=== PATIENT | female | born 1965 | race Caucasian/White ===

== ENCOUNTER → 2016-05-04 | Day surgery (SDC) | payer OTHER ==
[~2016-05-04] VITALS: Ht 162.6 cm; Wt 127.0 kg
[~2016-05-04] MED LIST: BIOT1CAP2 PO; CYCL10TA PO; LIDOCAINE 2% INJ 100 MG/5 ML SDV (FOR ANES.) As Ordered ONE; LISI-542 PO; LR 1,000 ML IV SCH; OMEP20CA3 PO; PROPOFOL 200 MG/20 ML VIAL As Ordered ONE; TRAM50TA2 PO; VITA-121 PO
--- NOTE | 2016-05-04 15:51 | ROOR ---
Patient Name: Skylar Carpio Procedure Date: 05/04/2016 1:55 PM Date of : 1965 Age: 51 Room: Main OR Gender: Female Note Status: Finalized Procedure: Colonoscopy Indications: This is the patient's first colonoscopy Providers: Víctor Deleon MD Referring MD: ROXY WATERMAN DO Requesting Provider: Medicines: Monitored Anesthesia Care Complications: No immediate complications. Procedure: Pre-Anesthesia Assessment: - Prior to the procedure, a History and Physical was performed, and patient medications and allergies were reviewed. The patient is competent. The risks and benefits of the procedure and the sedation options and risks were discussed with the patient. All questions were answered and informed consent was obtained. Patient identification and proposed procedure were verified by the physician, the nurse and the facing baster in the procedure room. Mental Status Examination: alert and oriented. CV Examination: regular rate and rhythm. Prophylactic Antibiotics: The patient does not require prophylactic antibiotics. Prior Anticoagulants: The patient has taken no previous anticoagulant or antiplatelet agents. ASA Grade Assessment: III - A patient with severe systemic disease. After reviewing the risks and benefits, the patient was deemed in satisfactory condition to undergo the procedure. The anesthesia plan was to use monitored anesthesia care (MAC). Immediately prior to administration of medications, the patient was re-assessed for adequacy to receive sedatives. The heart rate, respiratory rate, oxygen saturations, blood pressure, adequacy of pulmonary ventilation, and response to care were monitored throughout the procedure. The physical status of the patient was re-assessed after the procedure. The Colonoscope was introduced through the anus and advanced to the cecum, identified by appendiceal orifice and ileocecal valve. The colonoscopy was performed without difficulty. The patient tolerated the procedure well. The quality of the bowel preparation was excellent. Findings: The perianal and digital rectal examinations were normal. Multiple medium-mouthed diverticula were found in the sigmoid colon. A few small-mouthed diverticula were found in the descending colon, splenic flexure, transverse colon, hepatic flexure and ascending colon. A 5 mm polyp was found at 60 cm proximal to the anus. The polyp was sessile. The polyp was removed with a hot snare. Resection and retrieval were complete. Impression: - Diverticulosis in the sigmoid colon. - Diverticulosis in the descending colon, at the splenic flexure, in the transverse colon, at the hepatic flexure and in the ascending colon. - One 5 mm polyp at 60 cm proximal to the anus, removed with a hot snare. Resected and retrieved. Recommendation: - Await pathology results. - Discharge patient to home. - Resume previous diet. - Continue present medications. - Telephone endoscopist for pathology results in 10 days. Attending Participation: I personally performed the entire procedure. Víctor Deleon MD 05/04/2016 3:51:24 PM Number of Addenda: 0 Note Initiated On: 05/04/2016 1:55 PM Estimated Blood Loss: Estimated blood loss: none.
[2016-05-04 16:40] VITALS: BP 138/77
== END | disposition home or self-care (01) ==
LOC: M SDC 11:15
PROVIDERS: ATTEND Surgery
DX: Z12.11 Encounter for screening for malignant neoplasm of colon (principal); D12.6 Benign neoplasm of colon, unspecified; K57.30 Diverticulosis of large intestine without perforation or abscess without bleeding; I10 Essential (primary) hypertension; E66.9 Obesity, unspecified; Z98.84 Bariatric surgery status; K21.9 Gastro-esophageal reflux disease without esophagitis; G47.30 Sleep apnea, unspecified; Z88.8 Allergy status to other drugs, medicaments and biological substances; M54.5 Low back pain; Z87.891 Personal history of nicotine dependence; Z79.899 Other long term (current) drug therapy

== ENCOUNTER → 2016-08-09 | Outpatient (REF) | payer OTHER ==
[~2016-08-09] MED LIST changes: -LIDOCAINE 2% INJ 100 MG/5 ML SDV (FOR ANES.) As Ordered ONE; -LR 1,000 ML IV SCH; -PROPOFOL 200 MG/20 ML VIAL As Ordered ONE
[2016-08-09 14:00] LABS: IMMUNOGLOBULIN G 1100 MG/DL (681-1648); IMMUNOGLOBULIN M 76.7 MG/DL (40-230)
[2016-08-09 14:18] LABS: TOTAL PROTEIN 6.8 GM/DL (6.4-8.2)
[2016-08-10 11:52] LABS: ALBUMIN 3.62 GM/DL (3.29-5.55); ALBUMIN % 53.3 % (55.8-66.1); GAMMA GLOBULIN % 16.4 % (11.1-18.8)
[2016-08-11 00:06] LABS: BETA 2 MICROGLOBULIN 2.7 mg/L (0.6-2.4); FREE KAPPA LIGHT CHAINS SERUM 22.1 mg/L (3.3-19.4); FREE LAMBDA LIGHT CHAINS SERUM 25.7 mg/L (5.7-26.3); KAPPA/LAMBDA RATIO SERUM 0.86 (0.26-1.65)
== END ==
LOC: M LAB REF 12:21
PROVIDERS: ATTEND Internal Medicine Medical Oncology
DX: D47.2 Monoclonal gammopathy (principal)

== ENCOUNTER → 2016-08-14 | Outpatient (REF) | payer OTHER | LOC: M LAB REF 14:49 | PROVIDERS: ATTEND Nurse Practitioner Family | DX: D47.2 Monoclonal gammopathy (principal) ==

== ENCOUNTER → 2016-08-14 | Outpatient (CLI) | payer OTHER ==
--- NOTE | 2016-08-15 02:53 | REP ---
Clinical: Monoclonal gammopathy of undetermined significance (MGUS) Technique: Adult bone survey. Findings: No lytic, blastic, or sclerotic osseous lesions are identified to suggest multiple myeloma or metastatic disease. Moderate to advanced multilevel degenerative changes noted predominantly involving the cervical spine at the C4-5 through C7-T1 levels including grade 1 anterolisthesis and reversal of lordosis at the C4-5 level. Moderate to advanced multilevel changes are also noted involving the lower thoracic and lumbosacral spine including osteophytosis, endplate sclerosis, elements of disc space narrowing and hypertrophic facet changes which are most pronounced at the L4-5 and L5-S1 levels as well as the T10-11, T11-12, and T12-L1 levels. AP and lateral views of the skull demonstrates hyperostosis frontalis. The bilateral visualized upper and lower extremities appear normal for age. Impression: 1. Degenerative changes primarily involving the cervical, lumbar and to a somewhat lesser extent thoracic spine. 2. No findings to suggest multiple myeloma or osseous metastatic disease. Signed by Rafael Gleason MD 08/15/2016 02:45 A
== END ==
LOC: M RAD 13:29 → M LAB 13:29
PROVIDERS: ATTEND Nurse Practitioner Family
DX: D47.2 Monoclonal gammopathy (principal)

== ENCOUNTER 2016-10-23 18:18 | Emergency (ER) | payer OTHER ==
[~2016-10-23] VITALS: Ht 162.6 cm; Wt 127.2 kg
[2016-10-23] MEDS ORDERED: NORCO 5/325MG TABLET (BULK FOR ED) PO ONE (20:45)
--- NOTE | 2016-10-23 20:50 | REPUSA ---
CLINICAL INFORMATION: Pain. TECHNIQUE: 4 views of the left wrist. COMPARISON: None. FINDINGS: The radiocarpal joint space is intact. Moderate degenerative changes are seen at the first carpal/met acarpal joint space. Normal alignment of the carpal and metacarpal bones are noted. There is no abnor mal periosteal reaction. No fracture is seen. The surrounding soft tissues are unremarkable. IMPRESSION: No fracture or significant abnormality is identified. Degenerative osteoarthritic changes of the firs t carpal/metacarpal joint space.
[2016-10-23 22:44] VITALS: BP 126/74
--- NOTE | 2016-10-24 08:29 | REP ---
LEFT HAND SERIES: Two views. HISTORY: Injury in a fall. FINDINGS: There is severe osteoarthritis at the 1st carpometacarpal articulation. The joint space is quite narrowed, there is some subcortical cyst formation, and there are large osteophytes. There is also a small cyst in the distal end of the ulnar styloid. IMPRESSION: Severe osteoarthritis in the first carpometacarpal articulation. No fracture or subluxation is seen. Signed by Otis Delgado MD 10/24/2016 08:30 A
== END 2016-10-23 22:49 | disposition home or self-care (01) ==
LOC: M ED 18:18
DX: M19.042 Primary osteoarthritis, left hand (principal); Z79.899 Other long term (current) drug therapy; Z88.5 Allergy status to narcotic agent; Z88.8 Allergy status to other drugs, medicaments and biological substances

== ENCOUNTER 2016-11-08 14:38 | Emergency (ER) | payer OTHER ==
[~2016-11-08] VITALS: Ht 162.6 cm; Wt 127.3 kg
[2016-11-08] MEDS ORDERED: HYDR200T3 (14:47)
[2016-11-08] MEDS ORDERED: KETOROLAC 60 MG/2 ML VIAL (J1885) IM ONE (15:30)
--- NOTE | 2016-11-08 15:58 | REP ---
Clinical: Pain. Technique: AP, lateral, bilateral oblique and sunrise views of the left knee. Comparison: 02/14/2012 Findings: Mild degenerative changes include subtle increased sclerosis to the tibial plateau and patella with tibiofemoral and patellofemoral joint space narrowing. No significant osteophytosis or periarticular calcifications. No obvious effusion. No evidence for fracture or dislocation. Impression: Mild tricompartmental degenerative changes. Signed by Rafael Gleason MD 11/08/2016 03:50 P
[2016-11-08] MEDS ORDERED: HYDR-3713 PO (16:08)
[2016-11-08 16:19] VITALS: BP 118/75
== END 2016-11-08 16:21 | disposition home or self-care (01) ==
LOC: M ED 14:38
DX: M25.562 Pain in left knee (principal); E11.9 Type 2 diabetes mellitus without complications; I10 Essential (primary) hypertension; E66.01 Morbid (severe) obesity due to excess calories
CPT/HCPCS: 73564; 96372; 99282; J1885

== ENCOUNTER 2016-11-10 14:09 | Emergency (ER) | payer OTHER ==
[~2016-11-10] VITALS: Ht 162.6 cm; Wt 132.4 kg
[~2016-11-10 14:09] MED LIST changes: +HYDR-3713 PO; +HYDR200T3
[2016-11-10] MEDS ORDERED: FERR325T3 PO (14:29)
[2016-11-10] MEDS ORDERED: IBUP-1022 PO (15:54)
[2016-11-10 15:59] VITALS: BP 148/89
== END 2016-11-10 16:03 | disposition home or self-care (01) ==
LOC: M ED 14:09
DX: M23.92 Unspecified internal derangement of left knee (principal); I10 Essential (primary) hypertension

== ENCOUNTER → 2016-11-22 | Outpatient (REF) | payer OTHER ==
[~2016-11-22] MED LIST changes: +FERR1TAB8; +FERR325T3 PO; +IBUP-1022 PO; +ZITHTAB PO
[2016-11-22 19:07] LABS: IMMUNOGLOBULIN G 1140 MG/DL (681-1648); IMMUNOGLOBULIN M 78.1 MG/DL (40-230)
[2016-11-25 00:06] LABS: BETA 2 MICROGLOBULIN 1.9 mg/L (0.6-2.4); FREE KAPPA LIGHT CHAINS SERUM 17.5 mg/L (3.3-19.4); FREE LAMBDA LIGHT CHAINS SERUM 27.5 mg/L (5.7-26.3); KAPPA/LAMBDA RATIO SERUM 0.64 (0.26-1.65)
[2016-11-27 12:34] LABS: ALBUMIN 3.78 GM/DL (3.29-5.55); GAMMA GLOBULIN % 16.8 % (11.1-18.8)
== END ==
LOC: M LAB REF 14:13
PROVIDERS: ATTEND Internal Medicine Medical Oncology
DX: D47.2 Monoclonal gammopathy (principal)

== ENCOUNTER → 2016-12-03 | Outpatient (REF) | payer OTHER | LOC: M LAB REF 09:31 | PROVIDERS: ATTEND Internal Medicine Medical Oncology | DX: D47.2 Monoclonal gammopathy (principal) ==

== ENCOUNTER 2016-12-06 09:26 | Emergency (ER) | payer OTHER ==
[~2016-12-06] VITALS: Ht 162.6 cm; Wt 125.0 kg
[~2016-12-06 09:26] MED LIST changes: -FERR1TAB8; -ZITHTAB PO
[2016-12-06] MEDS ORDERED: FERR1TAB8 (09:37)
--- NOTE | 2016-12-06 11:14 | REP ---
Left knee series: Five views. History: Trauma. Pain after fall. Comparison study November 08, 2016. There is minimal patellar spurring and medial compartment lipping. Bones, joints, and soft tissues are otherwise unremarkable and unchanged. Impression: No fracture or other traumatic abnormality seen. Minimal patellar lipping. Signed by Otis Delgado MD 12/06/2016 11:25 A
[2016-12-06] MEDS ORDERED: PERCOCET 5MG/325MG TAB PO ONE (11:45)
[2016-12-06] MEDS ORDERED: ZITHTAB PO (11:56)
[2016-12-06 12:16] VITALS: BP 144/83
== END 2016-12-06 12:17 | disposition home or self-care (01) ==
LOC: M ED 09:26
DX: S80.02XA Contusion of left knee, initial encounter (principal); W01.198A Fall on same level from slipping, tripping and stumbling with subsequent striking against other object, initial encounter; Y92.89 Other specified places as the place of occurrence of the external cause; Y93.01 Activity, walking, marching and hiking; Y99.8 Other external cause status; J01.90 Acute sinusitis, unspecified; E11.9 Type 2 diabetes mellitus without complications; I10 Essential (primary) hypertension; J45.909 Unspecified asthma, uncomplicated; G47.33 Obstructive sleep apnea (adult) (pediatric); Z79.899 Other long term (current) drug therapy; Z88.5 Allergy status to narcotic agent; Z88.8 Allergy status to other drugs, medicaments and biological substances; Z98.0 Intestinal bypass and anastomosis status; Z87.891 Personal history of nicotine dependence

== ENCOUNTER → 2017-02-27 | Outpatient (REF) | payer OTHER ==
[~2017-02-27] MED LIST changes: +FERR1TAB8; +ZITHTAB PO
== END ==
LOC: M LAB REF 12:37
PROVIDERS: ATTEND Physician Assistant Medical
DX: N39.0 Urinary tract infection, site not specified (principal)

== ENCOUNTER → 2017-07-18 | Outpatient (REF) | payer OTHER ==
[2017-07-18 21:27] LABS: APPEARANCE, URINE HAZY (CLEAR); BACTERIA, URINE AUTO 1+ (NEGATIVE); BILIRUBIN, URINE AUTO NEGATIVE (NEGATIVE); BLOOD, URINE BLOOD NEGATIVE (NEGATIVE); COLOR, URINE YELLOW (YELLOW); GLUCOSE, URINE (UA) AUTO NEGATIVE (NEGATIVE); KETONE, URINE AUTO NEGATIVE (NEGATIVE); LEUKOCYTE ESTERASE, URINE AUTO 3+ (NEGATIVE); MUCUS, URINE SMALL (NEGATIVE); NITRITE, URINE AUTO NEGATIVE (NEGATIVE); PROTEIN, URINE AUTO NEGATIVE (NEGATIVE); RBC, URINE AUTO 2 /HPF (0-3); SPECIFIC GRAVITY URINE AUTO 1.017 (1.002-1.035); SQUAMOUS EPITHELIAL CELL UR AU 1 /HPF (0-6); UROBILINOGEN, URINE AUTO 0.2 mg/dL (0.0-2.0); WBC, URINE AUTO 6 /HPF (0-3)
== END ==
LOC: M LAB REF 09:50
DX: N39.0 Urinary tract infection, site not specified (principal)
CPT/HCPCS: 81001

== ENCOUNTER → 2017-08-06 | Outpatient (REF) | payer OTHER ==
[2017-08-06 21:43] LABS: APPEARANCE, URINE CLEAR (CLEAR); BACTERIA, URINE AUTO 2+ (NEGATIVE); BILIRUBIN, URINE AUTO NEGATIVE (NEGATIVE); BLOOD, URINE BLOOD NEGATIVE (NEGATIVE); COLOR, URINE YELLOW (YELLOW); GLUCOSE, URINE (UA) AUTO NEGATIVE (NEGATIVE); KETONE, URINE AUTO NEGATIVE (NEGATIVE); LEUKOCYTE ESTERASE, URINE AUTO 2+ (NEGATIVE); MUCUS, URINE SMALL (NEGATIVE); NITRITE, URINE AUTO NEGATIVE (NEGATIVE); PROTEIN, URINE AUTO NEGATIVE (NEGATIVE); RBC, URINE AUTO 3 /HPF (0-3); SQUAMOUS EPITHELIAL CELL UR AU 2 /HPF (0-6); WBC, URINE AUTO 19 /HPF (0-3)
== END ==
LOC: M LAB REF 09:16
DX: N39.0 Urinary tract infection, site not specified (principal)
CPT/HCPCS: 81001

== ENCOUNTER → 2018-04-01 | Outpatient (REF) | payer OTHER ==
[2018-04-01 20:40] LABS: APPEARANCE, URINE CLEAR (CLEAR); BACTERIA, URINE AUTO NEGATIVE (NEGATIVE); BILIRUBIN, URINE AUTO NEGATIVE (NEGATIVE); BLOOD, URINE BLOOD NEGATIVE (NEGATIVE); COLOR, URINE YELLOW (YELLOW); GLUCOSE, URINE (UA) AUTO NEGATIVE (NEGATIVE); KETONE, URINE AUTO NEGATIVE (NEGATIVE); LEUKOCYTE ESTERASE, URINE AUTO NEGATIVE (NEGATIVE); MUCUS, URINE SMALL (NEGATIVE); NITRITE, URINE AUTO NEGATIVE (NEGATIVE); PROTEIN, URINE AUTO NEGATIVE (NEGATIVE); RBC, URINE AUTO 2 /HPF (0-3); SPECIFIC GRAVITY URINE AUTO 1.019 (1.002-1.035); SQUAMOUS EPITHELIAL CELL UR AU 2 /HPF (0-6); WBC, URINE AUTO 1 /HPF (0-3)
== END ==
LOC: M LAB REF 09:23 → M LAB 09:23
PROVIDERS: ATTEND Physician Assistant Medical
DX: N39.0 Urinary tract infection, site not specified (principal)

== ENCOUNTER → 2018-05-15 | Outpatient (CLI) | payer OTHER ==
--- NOTE | 2018-05-15 17:37 | REPMRS ---
Patient History The patient states she had a clinical breast exam in 2018. Family history of ovarian cancer at age 20 in sister, breast cancer at age 50 in maternal aunt, breast cancer at age 60 in maternal grandmother. Digital Mammo Screening Bilat: May 15, 2018 - Exam #: [id number] Bilateral CC and MLO view(s) were taken. Technologist: Lisa Robertson, Technologist FINDINGS: The breast tissue is almost entirely fat. This is a baseline mammogram. There is no dominant mass, areas of architectural distortion, or clustered microcalcification typical of malignancy. Scattered lymph nodes are seen in the axillae. There is a benign appearing intramammary node in the upper outer quadrant of the left breast. . 3-D tomosynthesis shows no additional findings. Assessment: BI-RADS/ACR category 2 mammogram. Benign Findings. Recommendation Routine screening mammogram in 1 year. A. Negative x-ray reports should not delay biopsy if a dominant or clinically suspicious mass is present. B. Four to eight percent of cancers are not identified by mammography. C. Adenosis and dense breast may obscure an underlying neoplasm.(for women over age 40). This mammogram was interpreted with the aid of an FDA-approved computer-aided dectection system. Electronically Signed By: Magdiel Brennan MD 05/15/18 0191
== END ==
LOC: M RAD 12:08
PROVIDERS: ATTEND Nurse Practitioner
DX: Z12.31 Encounter for screening mammogram for malignant neoplasm of breast (principal); Z80.3 Family history of malignant neoplasm of breast; Z80.41 Family history of malignant neoplasm of ovary

== ENCOUNTER 2018-10-04 17:43 | Emergency (ER) | payer OTHER ==
[~2018-10-04] VITALS: Ht 162.6 cm; Wt 132.6 kg
[~2018-10-04 17:43] MED LIST changes: -HYDR200T3; +HYDR200T3 PO; +OMEP1CAP73 PO; -OMEP20CA3 PO
[2018-10-04] MEDS ORDERED: GNP250TA9 PO (17:59)
[2018-10-04] MEDS ORDERED: methylPREDNISolone INJ 125 MG/2 ML VIAL (J2930) IM ONE (19:15)
[2018-10-04] MEDS ORDERED: KETOROLAC 60 MG/2 ML VIAL (J1885) IM ONE (19:15)
[2018-10-04] MEDS ORDERED: PRED20TA PO (20:42)
[2018-10-04] MEDS ORDERED: KETO10TAB PO (20:42)
[2018-10-04] MEDS ORDERED: LIDOCAINE 5% (LIDODERM) PATCH TD ONE (20:45)
[2018-10-04 20:51] VITALS: BP 126/70
--- NOTE | 2018-10-05 08:26 | REP ---
Clinical: Pain/tenderness. Technique: AP, lateral, bilateral oblique and coned-down views of the lumbosacral spine. Findings: Partial fusion of the L4-5 vertebral bodies and associated degenerative disc osteophyte complex at L5-S1 is appreciated. The visualized lower thoracic and lumbar vertebral bodies through L3 demonstrate normal alignment with moderate multilevel degenerative changes including endplate sclerosis, early osteophytosis, hypertrophic facet changes and disc space narrowing. There is no evidence for acute fracture / compression injury. Incidental IVC filter identified. Impression: Chronic degenerative changes as detailed above. No evidence for acute fracture / compression injury. Electronically Signed by Rafael Gleason MD 10/05/2018 08:18 A
[2018-10-05] MEDS ORDERED: **NOTE PATIENT COMMENT** MISC XX ONE (08:45)
== END 2018-10-04 21:02 | disposition home or self-care (01) ==
LOC: M ED 17:43
DX: S39.012A Strain of muscle, fascia and tendon of lower back, initial encounter (principal); M54.41 Lumbago with sciatica, right side; X58.XXXA Exposure to other specified factors, initial encounter; Y92.099 Unspecified place in other non-institutional residence as the place of occurrence of the external cause; Y93.9 Activity, unspecified; Y99.9 Unspecified external cause status; E11.9 Type 2 diabetes mellitus without complications; I10 Essential (primary) hypertension; M19.90 Unspecified osteoarthritis, unspecified site; K80.20 Calculus of gallbladder without cholecystitis without obstruction; E28.2 Polycystic ovarian syndrome; K58.9 Irritable bowel syndrome, unspecified; M79.7 Fibromyalgia; Z98.84 Bariatric surgery status; M35.9 Systemic involvement of connective tissue, unspecified; N32.81 Overactive bladder; M70.70 Other bursitis of hip, unspecified hip; Z95.828 Presence of other vascular implants and grafts; Z79.899 Other long term (current) drug therapy; Z88.5 Allergy status to narcotic agent; Z88.8 Allergy status to other drugs, medicaments and biological substances
CPT/HCPCS: 72110; 81001; 84702; 87086; 96372; 99283; J1885; J2930

== ENCOUNTER 2018-12-21 17:20 | Emergency (ER) | payer OTHER ==
[~2018-12-21] VITALS: Ht 162.6 cm; Wt 136.2 kg
[~2018-12-21 17:20] MED LIST changes: +GNP250TA9 PO; +KETO10TAB PO; -OMEP1CAP73 PO; +OMEP20CA4 PO; +PRED20TA PO
[2018-12-21 18:42] LABS: BASO % 0.4 % (0.0-1.0); EOS # 0.2 10^3/uL (0.0-0.5); EOS % 2.6 % (0.0-3.0); HEMATOCRIT 39.1 % (36.0-47.0); HEMOGLOBIN 13.1 g/dl (12.0-15.5); LYMPH # 2.1 10^3/uL (1.5-5.0); LYMPH % 28.3 % (24.0-44.0); MEAN CORPUSCULAR HEMOGLOBIN 29.9 pg (27.0-33.0); MEAN CORPUSCULAR HGB CONC 33.5 g/dl (32.0-36.5); MEAN CORPUSCULAR VOLUME 89.3 fl (80.0-96.0); MONO # 0.5 10^3/uL (0.0-0.8); MONO % 6.6 % (0.0-5.0); NEUTROPHILS # 4.6 10^3/uL (1.5-8.5); NEUTROPHILS % 61.8 % (36.0-66.0); PLATELET COUNT, AUTOMATED 276 10^3/uL (150-450); RED BLOOD COUNT 4.38 10^6/uL (4.00-5.40); WHITE BLOOD COUNT 7.4 10^3/uL (4.0-10.0)
[2018-12-21 18:57] LABS: ALBUMIN 3.4 GM/DL (3.2-5.2); ALT/SGPT 46 U/L (12-78); BILIRUBIN,DIRECT 0.1 MG/DL (0.0-0.2); BILIRUBIN,TOTAL 0.4 MG/DL (0.2-1.0); CK-MB VALUE MASS 1.6 NG/ML (<3.6); CPK CREATINE PHOSPHOKINASE 138 U/L (26-192); LIPASE 182 U/L (73-393); MB/CK RELATIVE INDEX 1.16 (< OR =4); TOTAL PROTEIN 7.1 GM/DL (6.4-8.2); TROPONIN I < 0.02 NG/ML (< 0.10)
[2018-12-21] MEDS ORDERED: KETOROLAC 30 MG/ML VIAL (J1885) IV ONE (19:00)
[2018-12-21] MEDS ORDERED: NS 1,000 ML IV ONE (19:00)
[2018-12-21] MEDS ORDERED: ONDANSETRON 4MG/2ML VIAL (J2405) IV ONE (19:00)
[2018-12-21] MEDS ORDERED: VITA2000 PO (19:10)
[2018-12-21] MEDS: GASTROGRAFIN SOLUTION 30ML PO SCH ×2 (19:45→20:13)
--- NOTE | 2018-12-21 19:56 | REP ---
Chest x-ray: Two views. History: Epigastric pain. Comparison study: May 22, 2015. Findings: The lungs are well inflated and clear. Pleural angles are sharp. Heart size is unchanged. Heart is not felt to be enlarged. Pulmonary vasculature is not increased. No significant bony abnormality. Impression: No active disease. Electronically Signed by Otis Delgado MD 12/21/2018 07:48 P
[2018-12-21] MEDS ORDERED: ISOVUE-370 76% 100ML VIAL (Q9967) As Ordered ONE (21:31)
--- NOTE | 2018-12-21 22:21 | REPVR ---
PROCEDURE INFORMATION: Exam: CT Abdomen And Pelvis With Contrast Exam date and time: 12/21/2018 9:44 PM Clinical history: 53 years old, female; Abdominal pain; Additional info: Epigastric pain, HX gastric bypass TECHNIQUE: Imaging protocol: Computed tomography of the abdomen and pelvis with intravenous contrast. Radiation optimization: All CT scans at this facility use at least one of these dose optimization techniques: automated exposure control; mA and/or kV adjustment per patient size (includes targeted exams where dose is matched to clinical indication); or iterative reconstruction. Contrast material: ISO 370; Contrast volume: 100 ml; Contrast route: IV; COMPARISON: CR Spine. Lumbosacral, complete 10/04/2018 7:40 PM FINDINGS: Liver: The liver attenuation is 58 Hounsfield units and the spleen is 90 Hounsfield units. Gallbladder and bile ducts: Status post cholecystectomy. Pancreas: Normal. No ductal dilation. Spleen: Normal. No splenomegaly. Adrenals: Normal. No mass. Kidneys and ureters: Normal. No hydronephrosis. Stomach and bowel: Small fat filled epigastric hernia with another more caudal epigastric hernia which is primarily fat filled with a segment of bowel extending just into the orifice. There is a larger more caudal epigastric hernia which contains small bowel segments with no strangulation or obstruction and a smaller adjacent more caudal fat filled epigastric hernia. There is a fat filled umbilical hernia. Status post gastric bypass with trace fluid and gas in the bypassed stomach. Colonic diverticulosis with slight pericolonic induration of the proximal sigmoid which may reflect minimal early diverticulitis, possibly of a culprit diverticulum which projects posterior medially. Appendix: A normal appendix is seen. Intraperitoneal space: Unremarkable. No free air. No significant fluid collection. Vasculature: There is an IVC filter in position. Incidental note of an accessory retroaortic left renal vein. Lymph nodes: Unremarkable. No enlarged lymph nodes. Bladder: Unremarkable as visualized. Reproductive: Unremarkable as visualized. Bones/joints: Facet arthropathy and some degenerative disc change of the lower lumbar spine. Soft tissues: See Stomach And Bowel Finding. IMPRESSION: 1. Status post cholecystectomy and gastric bypass. 2. IVC filter in position. 3. Multiple epigastric and umbilical hernias which are mostly fat filled. There is an epigastric hernia containing some small bowel with no strangulation or obstruction. 4. Colonic diverticulosis with slight pericolonic induration in the proximal sigmoid which may be around a specific culprit diverticulum projecting posteromedially and may reflect early or minimal diverticulitis. Electronically signed by: Tu Ruiz On 12/21/2018 22:20:50 PM
[2018-12-21] MEDS ORDERED: REGL10TA6 PO (22:40)
[2018-12-21] MEDS ORDERED: FLAG500T PO (22:40)
[2018-12-21] MEDS ORDERED: CIPR-249 PO (22:40)
[2018-12-21] MEDS ORDERED: metroNIDAZOLE (FLAGYL) 500 MG TAB PO ONE (22:45)
[2018-12-21] MEDS ORDERED: CIPROFLOXACIN 500 MG TAB PO ONE (22:45)
[2018-12-21] MEDS ORDERED: METOCLOPRAMIDE 10 MG TAB PO ONE (22:45)
[2018-12-21 23:00] VITALS: BP 133/70
--- NOTE | 2018-12-23 09:51 | ECGEPIP ---
[facility] - ED Test Date: 2018-12-21 Pat Name: ADAIR KIRKLAND Department: Room: - Gender: Female Side Seam Tender: fauzia : 1965 Requested By: NAVJOT Cervantes PA-C Order Number: [id number] Reading MD: Denise Rodriguez Measurements Intervals [place] Rate: 82 P: 41 ME: 163 QRS: 32 QRSD: 82 T: 7 QT: 379 QTc: 445 Interpretive Statements SINUS RHYTHM LOW QRS VOLTAGE IN PRECORDIAL LEADS NONSPECIFIC T-WAVE ABNORMALITY RIGHT VENTRICULAR CONDUCTION DELAY NO PRIOR Electronically Signed on 12-23-2018 9:51:42 EDT by Denise Rodriguez
== END 2018-12-21 23:13 | disposition home or self-care (01) ==
LOC: M ED 17:20
DX: K57.92 Diverticulitis of intestine, part unspecified, without perforation or abscess without bleeding (principal); E11.9 Type 2 diabetes mellitus without complications; I10 Essential (primary) hypertension; Z87.19 Personal history of other diseases of the digestive system; Z98.0 Intestinal bypass and anastomosis status; Z98.890 Other specified postprocedural states; Z88.5 Allergy status to narcotic agent; Z88.8 Allergy status to other drugs, medicaments and biological substances
CPT/HCPCS: 71046; 74177; 80047; 80076; 81001; 82550; 82553; 83690; 85025; 87086; 93005; 96374; 96375; 99284; J1885; J2405; Q9963; Q9967

== ENCOUNTER 2019-01-29 20:09 | Emergency (ER) | payer OTHER ==
[~2019-01-29] VITALS: Ht 162.6 cm; Wt 134.5 kg
[~2019-01-29 20:09] MED LIST changes: +CIPR-249 PO; +FLAG500T PO; +REGL10TA6 PO; +VITA2000 PO
[2019-01-29] MEDS ORDERED: KETOROLAC 30 MG/ML VIAL (J1885) IV ONE (21:00)
[2019-01-29 21:07] LABS: BASO % 0.3 % (0.0-1.0); EOS # 0.1 10^3/uL (0.0-0.5); EOS % 1.3 % (0.0-3.0); HEMATOCRIT 40.5 % (36.0-47.0); HEMOGLOBIN 13.3 g/dl (12.0-15.5); LYMPH # 1.9 10^3/uL (1.5-5.0); LYMPH % 19.8 % (24.0-44.0); MEAN CORPUSCULAR HEMOGLOBIN 30.1 pg (27.0-33.0); MEAN CORPUSCULAR HGB CONC 32.8 g/dl (32.0-36.5); MEAN CORPUSCULAR VOLUME 91.6 fl (80.0-96.0); MONO # 0.6 10^3/uL (0.0-0.8); MONO % 6.2 % (0.0-5.0); NEUTROPHILS # 7.1 10^3/uL (1.5-8.5); NEUTROPHILS % 72.1 % (36.0-66.0); PLATELET COUNT, AUTOMATED 321 10^3/uL (150-450); RED BLOOD COUNT 4.42 10^6/uL (4.00-5.40); WHITE BLOOD COUNT 9.8 10^3/uL (4.0-10.0)
--- NOTE | 2019-01-29 21:25 | REPVR ---
PROCEDURE INFORMATION: Exam: US Duplex Left Lower Extremity Veins, Limited Exam date and time: 01/29/2019 9:15 PM Age: 53 years old Clinical history: Pain; Foot; Left; Additional info: Lle edema, R/O dvt TECHNIQUE: Imaging protocol: Real-time Duplex ultrasound of the Left Lower Extremity with 2-D hinton scale, color Doppler flow and spectral waveform analysis with image documentation. Limited exam focused on the left lower extremity veins. COMPARISON: US Duplex, Ext,LOWER veins,unilat 11/19/2015 10:20 AM FINDINGS: Left deep veins: Unremarkable. The common femoral, femoral and popliteal veins are patent without thrombus. Normal compressibility, augmentation response and Doppler waveforms. Left superficial veins: Unremarkable. Saphenofemoral junction is patent without thrombus. Soft tissues: Unremarkable. IMPRESSION: No sonographic evidence of deep vein thrombosis. Electronically signed by: Tristian Beaver On 01/29/2019 21:25:35 PM
[2019-01-29 21:28] LABS: ERYTHROCYTE SEDIMENTATION RATE 56 mm/hr (0-30)
[2019-01-29 21:29] LABS: BLOOD UREA NITROGEN 18 MG/DL (7-18); C REACTIVE PROTEIN QUANTITATIV 2.25 MG/DL (0.00-0.30); CALCIUM LEVEL 9.3 MG/DL (8.5-10.1); CARBON DIOXIDE LEVEL 31 MEQ/L (21-32); CHLORIDE LEVEL 104 MEQ/L (98-107); CREATININE FOR GFR 0.92 MG/DL (0.55-1.30); GLOMERULAR FILTRATION RATE > 60.0 (>51); GLUCOSE, FASTING 107 MG/DL (70-100); POTASSIUM SERUM 4.4 MEQ/L (3.5-5.1); SODIUM LEVEL 141 MEQ/L (136-145)
[2019-01-29] MEDS ORDERED: KETOROLAC 30 MG/ML VIAL (J1885) IM ONE (21:30)
[2019-01-29 22:10] LABS: URIC ACID 4.4 MG/DL (2.6-6.0)
[2019-01-29] MEDS ORDERED: LIDO1CRE2 TOP (22:23)
[2019-01-29] MEDS ORDERED: KEFL500C17 PO (22:23)
[2019-01-29 22:29] VITALS: BP 159/96
[2019-01-29] MEDS ORDERED: CEPHALEXIN 500 MG CAP PO ONE (22:30)
--- NOTE | 2019-01-30 06:27 | REP ---
Clinical: Pain and swelling . Technique: AP, lateral, bilateral oblique views left ankle . Findings: No acute fracture or dislocation. Skeletal structures and joint spaces are intact and normal. Ankle mortise appears stable. No subcutaneous emphysema or radiodense foreign body. Swelling noted. Moderate calcaneal heal spur. Impression: Swelling. No acute fracture or dislocation. Electronically Signed by Rafael Gleason MD 01/30/2019 06:17 A
--- NOTE | 2019-01-30 06:28 | REP ---
Clinical: Pain and swelling. Technique: AP, lateral, bilateral oblique views of the left foot. Findings: Moderate calcaneal heal spur. Generalized age-related changes. No acute fracture dislocation. No subcutaneous emphysema or foreign body. Impression: Generalized age-related changes. Electronically Signed by Rafael Gleason MD 01/30/2019 06:19 A
== END 2019-01-29 22:37 | disposition home or self-care (01) ==
LOC: M ED 20:09
DX: L03.116 Cellulitis of left lower limb (principal); R01.1 Cardiac murmur, unspecified; Z86.39 Personal history of other endocrine, nutritional and metabolic disease; I10 Essential (primary) hypertension; R51 Headache; K57.30 Diverticulosis of large intestine without perforation or abscess without bleeding; G47.30 Sleep apnea, unspecified; K21.9 Gastro-esophageal reflux disease without esophagitis; E55.9 Vitamin D deficiency, unspecified; I73.00 Raynaud's syndrome without gangrene; M79.7 Fibromyalgia; M81.0 Age-related osteoporosis without current pathological fracture; M13.0 Polyarthritis, unspecified; E28.2 Polycystic ovarian syndrome; Z98.84 Bariatric surgery status; Z95.828 Presence of other vascular implants and grafts; Z79.899 Other long term (current) drug therapy; Z88.5 Allergy status to narcotic agent; Z88.8 Allergy status to other drugs, medicaments and biological substances
CPT/HCPCS: 73610; 73630; 80048; 84550; 84702; 85025; 85652; 86140; 87040; 93971; 96372; 99283; J1885

== ENCOUNTER → 2019-03-26 | Outpatient (REF) | payer OTHER ==
[~2019-03-26] MED LIST changes: +KEFL500C17 PO; +LIDO1CRE2 TOP; +OMEP1CAP73 PO; -OMEP20CA4 PO
== END ==
LOC: M LAB REF 12:29
PROVIDERS: ATTEND Podiatrist Foot & Ankle Surgery
DX: M67.471 Ganglion, right ankle and foot (principal)

== ENCOUNTER → 2019-06-24 | Outpatient (CLI) | payer OTHER ==
[~2019-06-24] MED LIST changes: +CYCL-707 PO; -CYCL10TA PO
[2019-06-24 11:55] LABS: BASO % 0.5 % (0.0-1.0); EOS # 0.2 10^3/uL (0.0-0.5); EOS % 3.2 % (0.0-3.0); HEMATOCRIT 39.3 % (36.0-47.0); HEMOGLOBIN 13.3 g/dl (12.0-15.5); LYMPH # 1.8 10^3/uL (1.5-5.0); LYMPH % 31.1 % (24.0-44.0); MEAN CORPUSCULAR HEMOGLOBIN 30.1 pg (27.0-33.0); MEAN CORPUSCULAR HGB CONC 33.8 g/dl (32.0-36.5); MEAN CORPUSCULAR VOLUME 88.9 fl (80.0-96.0); MONO # 0.4 10^3/uL (0.0-0.8); MONO % 7.5 % (0.0-5.0); NEUTROPHILS # 3.3 10^3/uL (1.5-8.5); NEUTROPHILS % 57.5 % (36.0-66.0); PLATELET COUNT, AUTOMATED 299 10^3/uL (150-450); RED BLOOD COUNT 4.42 10^6/uL (4.00-5.40); WHITE BLOOD COUNT 5.7 10^3/uL (4.0-10.0)
[2019-06-24 12:15] LABS: ALBUMIN 3.4 GM/DL (3.2-5.2); ALT/SGPT 44 U/L (12-78); BILIRUBIN,TOTAL 0.4 MG/DL (0.2-1.0); BLOOD UREA NITROGEN 14 MG/DL (7-18); C REACTIVE PROTEIN QUANTITATIV 1.37 MG/DL (0.00-0.30); CALCIUM LEVEL 9.1 MG/DL (8.5-10.1); CARBON DIOXIDE LEVEL 32 MEQ/L (21-32); CHLORIDE LEVEL 103 MEQ/L (98-107); CREATININE FOR GFR 0.72 MG/DL (0.55-1.30); GLOMERULAR FILTRATION RATE > 60.0 (>51); GLUCOSE, FASTING 95 MG/DL (70-100); POTASSIUM SERUM 4.8 MEQ/L (3.5-5.1); RHEUMATOID FACTOR QUANT < 10.0 IU/ML (<15.0); SODIUM LEVEL 139 MEQ/L (136-145)
[2019-06-26 00:06] LABS: ANTINUCLEAR ANTIBODIES DIRECT Negative (Negative); CYCLIC CITRULLINATED PEPTIDE 8 units (0-19)
== END ==
LOC: M LAB 11:01
PROVIDERS: ATTEND Internal Medicine Rheumatology
DX: M25.50 Pain in unspecified joint (principal); M35.9 Systemic involvement of connective tissue, unspecified

== ENCOUNTER 2019-10-24 17:42 | Emergency (ER) | payer OTHER ==
[~2019-10-24] VITALS: Ht 162.6 cm; Wt 138.3 kg
[2019-10-24] MEDS ORDERED: NS 1,000 ML IV ONE (18:00)
[2019-10-24 18:31] LABS: BASO % 0.4 % (0.0-1.0); EOS # 0.1 10^3/uL (0.0-0.5); EOS % 0.9 % (0.0-3.0); HEMATOCRIT 43.4 % (36.0-47.0); HEMOGLOBIN 14.3 g/dl (12.0-15.5); LYMPH # 1.9 10^3/uL (1.5-5.0); MEAN CORPUSCULAR HEMOGLOBIN 28.9 pg (27.0-33.0); MEAN CORPUSCULAR HGB CONC 32.9 g/dl (32.0-36.5); MEAN CORPUSCULAR VOLUME 87.7 fl (80.0-96.0); MONO # 0.5 10^3/uL (0.0-0.8); MONO % 6.6 % (0.0-5.0); NEUTROPHILS # 5.5 10^3/uL (1.5-8.5); NEUTROPHILS % 67.9 % (36.0-66.0); PLATELET COUNT, AUTOMATED 320 10^3/uL (150-450); RED BLOOD COUNT 4.95 10^6/uL (4.00-5.40); WHITE BLOOD COUNT 8.1 10^3/uL (4.0-10.0)
[2019-10-24 18:53] LABS: ALBUMIN 3.7 GM/DL (3.2-5.2); ALT/SGPT 43 U/L (12-78); BILIRUBIN,DIRECT 0.1 MG/DL (0.0-0.2); BILIRUBIN,TOTAL 0.5 MG/DL (0.2-1.0); BLOOD UREA NITROGEN 15 MG/DL (7-18); CALCIUM LEVEL 9.3 MG/DL (8.5-10.1); CARBON DIOXIDE LEVEL 30 MEQ/L (21-32); CHLORIDE LEVEL 106 MEQ/L (98-107); CK-MB VALUE MASS 2.9 NG/ML (<3.6); CPK CREATINE PHOSPHOKINASE 207 U/L (26-192); CREATININE FOR GFR 0.84 MG/DL (0.55-1.30); GLOMERULAR FILTRATION RATE > 60.0 (>51); GLUCOSE, FASTING 101 MG/DL (70-100); LIPASE 164 U/L (73-393); POTASSIUM SERUM 4.3 MEQ/L (3.5-5.1); SODIUM LEVEL 140 MEQ/L (136-145); TOTAL PROTEIN 7.3 GM/DL (6.4-8.2); TROPONIN I < 0.02 NG/ML (< 0.10)
[2019-10-24] MEDS ORDERED: ISOVUE-370 76% 100ML VIAL As Ordered ONE (18:58)
--- NOTE | 2019-10-24 19:59 | REPVR ---
PROCEDURE INFORMATION: Exam: CT Abdomen And Pelvis With Contrast Exam date and time: 10/24/2019 7:00 PM Age: 54 years old Clinical indication: Abdominal pain; Generalized; Additional info: Abd pain x1.5 wks HX of diverticulitis TECHNIQUE: Imaging protocol: Computed tomography of the abdomen and pelvis with intravenous contrast. Radiation optimization: All CT scans at this facility use at least one of these dose optimization techniques: automated exposure control; mA and/or kV adjustment per patient size (includes targeted exams where dose is matched to clinical indication); or iterative reconstruction. Contrast material: ISOVUE 370; Contrast volume: 100 ml; Contrast route: INTRAVENOUS (IV); COMPARISON: CT ABD/PEL W/IV ORAL CONTRAS 12/21/2018 9:40 PM FINDINGS: Mediastinal space: Minimal thickening of the distal esophagus at the gastroesophageal junction. Liver: The liver is low in density. Gallbladder and bile ducts: Surgical clips in the gallbladder fossa. The gallbladder is absent. Pancreas: Normal. No ductal dilation. Spleen: 1.5 cm accessory spleen inferior to the splenic hilum. Adrenals: Normal. No mass. Kidneys and ureters: Normal. No hydronephrosis. Stomach and bowel: Postsurgical changes related to previous gastric bypass surgery are noted. Scattered colonic diverticula particularly in the sigmoid colon. No signs of strangulation. At the approximate mid jejunum (series 201 images 62 through 79) there is minimal perienteric inflammation within the mesenteric fat. Appendix: No evidence of appendicitis. Intraperitoneal space: The hernia sac measures 10 by 5.7 by 6.2 centimetres. Vasculature: An inferior vena cava filter is present. Lymph nodes: Unremarkable. No enlarged lymph nodes. Bladder: Unremarkable as visualized. Reproductive: Unremarkable as visualized. Bones/joints: Grade 1 spondylolisthesis at L4-L5 with 3.4 mm retrolisthesis L5 with respect L4. Sclerosis and joint space narrowing with partial fusion noted of the facet joints from L3 through L5. Soft tissues: There is a midline incisional hernia containing mesenteric fat and small bowel loops. Immediately superior to this, a portion of the anterior wall of the adjacent transverse colon extends into a small incisional hernia (Kaufman's type). There is an umbilical hernia containing fat. IMPRESSION: 1. Mild perienteric inflammation surrounding a mid jejunal loop. Enteritis might be considered. Distally, this bowel loop does enter the incisional hernia. Early strangulation considered less likely given the absence of bowel dilatation. 2. Anterior abdominal wall hernias as described above. 3. Stable thickening distal esophagus could represent esophagitis. 4. Scattered colonic diverticula. No diverticulitis. Electronically signed by: Nadia Rowan On 10/24/2019 19:58:56 PM
[2019-10-24] MEDS ORDERED: METOCLOPRAMIDE INJ 10MG/2ML VIAL (J2765 PER 1) IV ONE (20:15)
[2019-10-24] MEDS ORDERED: REGL10TA6 PO (21:26)
[2019-10-24] MEDS ORDERED: KEFL500C17 PO (21:28)
[2019-10-24 21:39] VITALS: BP 136/82
--- NOTE | 2019-11-17 14:46 | ECGEPIP ---
[facility] - ED Test Date: 2019-10-24 Pat Name: ADAIR KIRKLAND Department: Room: - Gender: Female Steel Heater: JAYDA : 1965 Requested By: NAVJOT MEYERS Order Number: [id number] Reading MD: Denise Rodriguez Measurements Intervals [place] Rate: 85 P: 15 WV: 167 QRS: 5 QRSD: 86 T: -23 QT: 377 QTc: 449 Interpretive Statements SINUS RHYTHM LOW QRS VOLTAGE IN PRECORDIAL LEADS MODERATE T-WAVE ABNORMALITY, CONSIDER ANTERIOR ISCHEMIA ABNORMAL ECG SEE SCANNED DOWNTIME REPORT
[2019-12-15] MEDS ORDERED: VITA200016 PO (10:09)
[2019-12-15] MEDS ORDERED: ESCI20TA PO (10:09)
[2019-12-15] MEDS ORDERED: FERR325T18 PO (10:09)
[2019-12-15] MEDS ORDERED: BACL10TA2 PO (10:09)
== END 2019-10-24 21:30 | disposition home or self-care (01) ==
LOC: M ED 17:42
DX: N39.0 Urinary tract infection, site not specified (principal); R10.9 Unspecified abdominal pain; K43.9 Ventral hernia without obstruction or gangrene; K22.8 Other specified diseases of esophagus; I10 Essential (primary) hypertension; M79.7 Fibromyalgia; E28.2 Polycystic ovarian syndrome; K57.92 Diverticulitis of intestine, part unspecified, without perforation or abscess without bleeding; I73.00 Raynaud's syndrome without gangrene; Z98.84 Bariatric surgery status; Z95.828 Presence of other vascular implants and grafts; Z79.899 Other long term (current) drug therapy; Z88.5 Allergy status to narcotic agent; Z88.8 Allergy status to other drugs, medicaments and biological substances
CPT/HCPCS: 36415; 74177; 80048; 80076; 81001; 82550; 82553; 83690; 84702; 85025; 87086; 93005; 96361; 96374; 99284; J2765; Q9967

== ENCOUNTER → 2019-12-24 | Outpatient (CLI) | payer OTHER ==
[~2019-12-24] MED LIST changes: +BACL10TA2 PO; +ESCI20TA PO; +FERR325T18 PO; +HYDR-3715 PO; +IBUP200C25 PO; +VITA200016 PO
== END ==
LOC: M LABSMTC 09:31
PROVIDERS: ATTEND Anesthesiology
DX: Z11.59 Encounter for screening for other viral diseases (principal)
CPT/HCPCS: C9803; U0003

== ENCOUNTER 2019-12-29 06:22 | Day surgery (SDC) | payer OTHER ==
[~2019-12-29] VITALS: Ht 162.6 cm; Wt 131.5 kg
[~2019-12-29 06:22] MED LIST changes: -HYDR-3715 PO; -IBUP200C25 PO; +LR 1,000 ML IV ONE
[2019-12-29] MEDS ORDERED: ONDANSETRON 4MG/2ML VIAL As Ordered ONE ×2 (06:42→14:59)
[2019-12-29] MEDS ORDERED: ROCURONIUM BROMIDE 50 MG/5 ML VIAL As Ordered ONE ×3 (06:42→10:44)
[2019-12-29] MEDS ORDERED: dexameTHASONE 4 MG/ML 1ML VIAL (J1100 PER 1MG) As Ordered ONE (06:42)
[2019-12-29] MEDS ORDERED: MIDAZOLAM INJ 2MG/2ML VIAL (J2250 PER 1MG) As Ordered ONE (06:42)
[2019-12-29] MEDS ORDERED: fentaNYL 250 MCG/5 ML INJECTION (J3010) As Ordered ONE (06:42)
[2019-12-29] MEDS ORDERED: propofoL 200 MG/20 ML VIAL As Ordered ONE ×2 (06:43→06:49)
[2019-12-29] MEDS ORDERED: LIDOCAINE 2% 100MG/5ML SDV (FOR ANES.) As Ordered ONE (06:43)
[2019-12-29] MEDS ORDERED: ePHEDrine SULFATE 25 MG/5 ML(5MG/ML) SYRINGE As Ordered ONE (06:43)
[2019-12-29] MEDS ORDERED: PHENYLephrine HCL 500 MCG/5 ML (100MCG/ML) SYRINGE (J2370) As Ordered ONE (06:43)
[2019-12-29] MEDS ORDERED: SUGAMMADEX SODIUM 500 MG/5 ML VIAL (BRIDION) As Ordered ONE (06:43)
[2019-12-29] MEDS ORDERED: IBUP200C25 PO (07:11)
[2019-12-29] MEDS ORDERED: BUPIVACAINE HCL 0.25% 30ML VIAL As Ordered ONE (07:12)
[2019-12-29] MEDS ORDERED: ACETAMINOPHEN 1000MG 100ML IV BTL (OFIRMEV) (J0131 PER 10MG) As Ordered ONE (07:59)
[2019-12-29] MEDS ORDERED: fentaNYL 100 MCG/2 ML INJECTION (J3010) As Ordered ONE ×2 (11:27→14:59)
[2019-12-29] MEDS ORDERED: ACETAMINOPHEN TAB 650MG DOSE (2X325MG) PO PRN (14:45)
[2019-12-29] MEDS ORDERED: ONDANSETRON 4MG/2ML VIAL IV PRN ×2 (14:45→15:15)
[2019-12-29] MEDS ORDERED: NORCO, ANEXSIA 5/325MG TABLET (HYDROcodone/ACETAMINOPHEN) PO PRN (14:45)
[2019-12-29] MEDS: LR 1,000 ML IV SCH (14:45)
[2019-12-29] MEDS ORDERED: oxyCODONE 5MG TAB As Ordered ONE (14:59)
[2019-12-29] MEDS ORDERED: MEPERIDINE INJ 25 MG/ML VIAL (J2175) As Ordered ONE (14:59)
[2019-12-29] MEDS: MEPERIDINE INJ 25 MG/ML VIAL (J2175) IV PRN ×2 (15:00→15:05)
[2019-12-29] MEDS: oxyCODONE 5MG TAB PO PRN ×2 (15:00→15:52)
[2019-12-29] MEDS: fentaNYL 100 MCG/2 ML INJECTION (J3010) IV PRN ×4 (15:10→15:25)
[2019-12-29] MEDS ORDERED: METOCLOPRAMIDE INJ 10MG/2ML VIAL (J2765 PER 1) IV PRN (15:15)
[2019-12-29] MEDS ORDERED: LR 1,000 ML IV SCH (15:15)
[2019-12-29 18:00] VITALS: BP 139/84
[2019-12-29] MEDS: MORPHINE 2 MG/ML 1ML VIAL (J2270) IV PRN ×2 (18:22→20:39)
[2019-12-29] MEDS: IBUPROFEN 600MG TAB PO PRN (20:39)
[2019-12-29] MEDS: BACLOFEN 10 MG TAB PO SCH (20:39)
[2019-12-29 22:00] VITALS: BP 131/76
[2019-12-30 02:00] VITALS: BP 113/67
[2019-12-30] MEDS: MORPHINE 2 MG/ML 1ML VIAL (J2270) IV PRN ×4 (02:06→18:32)
[2019-12-30] MEDS: LR 1,000 ML IV SCH (04:05)
[2019-12-30] MEDS: IBUPROFEN 600MG TAB PO PRN ×3 (05:35→20:11)
[2019-12-30 06:00] VITALS: BP 119/69
[2019-12-30] MEDS: lisinopriL 5 MG TAB PO SCH ×3 (09:00→09:03)
[2019-12-30] MEDS: HYDROXYCHLOROQUINE 200 MG TAB PO SCH (09:01)
[2019-12-30 10:00] VITALS: BP 138/83
[2019-12-30 14:00] VITALS: BP 135/77
[2019-12-30] MEDS: BACLOFEN 10 MG TAB PO SCH (20:11)
[2019-12-30 21:00] VITALS: O2SAT 90
[2019-12-30 22:00] VITALS: BP 135/80
[2019-12-31 02:00] VITALS: BP 136/79
[2019-12-31] MEDS: IBUPROFEN 600MG TAB PO PRN ×2 (03:45→14:25)
[2019-12-31 06:00] VITALS: BP 133/70
[2019-12-31 08:33] VITALS: BP 133/70
[2019-12-31] MEDS: HYDROXYCHLOROQUINE 200 MG TAB PO SCH (08:33)
[2019-12-31] MEDS: lisinopriL 5 MG TAB PO SCH (08:33)
[2019-12-31 14:00] VITALS: BP 147/85
[2019-12-31] MEDS ORDERED: HYDR-3715 PO (14:49)
--- NOTE | 2020-01-04 11:56 | RO ---
DATE OF OPERATION: 12/29/2019 PREOPERATIVE DIAGNOSIS: Ventral incisional hernias. POSTOPERATIVE DIAGNOSIS: Multiple incarcerated ventral incisional hernias with intraabdominal adhesions. PROCEDURE PERFORMED: Robotic assisted laparoscopic lysis of adhesions, repair of multiple incarcerated incisional hernias with mesh. SURGEON: Víctor Deleon MD SUGAR TRUCKER: MIRA Souza, who was essential in managing the multiple port sites with change of robotic instruments, insertion of mesh and preparation of the mesh, as well as passage of sutures. She also assisted in closure of the incisions. ANESTHESIA: General. INDICATIONS FOR THE PROCEDURE: The patient is a 54-year-old woman, who has undergone a previous Santos-en-Y gastric bypass through an upper midline incision and has also had laparoscopic cholecystectomy and prior laparoscopy. She has several longstanding large incisional hernias at the umbilicus and in the supraumbilical region. By CT scan, the largest defect is approximately 6 to 7 cm in diameter. She is now for a robotic assisted laparoscopic repair of her hernias. OPERATIVE PROCEDURE: The patient was brought to the operating room and placed on the table in a supine position. She was placed under general endotracheal anesthesia. TEDs and sequentials were utilized. The patient's abdomen was prepped and draped in a sterile fashion. 25% Marcaine was then infiltrated at each of the trocar sites as needed. The initial entry to the abdomen was high in the left upper quadrant below the costal margin. A short transverse incision was made and a Veress needle was inserted. After positive hanging drop test, attempted insufflation lead to high pressures and the Veress needle was removed and reinserted with the same results. I moved slightly further down the left side of the abdomen and made a second small incision. In this location, a positive hanging drop test was identified and insufflation proceeded without difficulty. An 8 mm robotic port was placed over a 5 mm scope and advanced through the abdominal wall at this point without difficulty. Initial examination revealed some adhesions to the anterior abdominal wall. There were 2 areas where omentum clearly protruded up into fascial defects along the midline. There were some filmier adhesions in the upper abdomen as well. An 8 mm port was placed through the initial incision high on the left upper quadrant. A 3rd port, also 8 mm in size, was placed approximately 10 cm below the 12 mm port and a 4th port was placed in the left lower quadrant and this was also an 8 mm port. The initial port that had been placed was converted to a 12 mm port, given a 3/8 and a 12 down the left side of the abdomen. Several adhesions were taken down using cauterizing scissors through these ports before docking the robot. This was to allow better mobility and ease of insertion of the robotic instruments. The patient cart of the da Yuki XI robot was the brought into position and docked to the endoscope port, which was the 12. Targeting took place along the midline at the site of the hernias and the additional robotic ports were then docked to the appropriate arms. A cauterizing scissor, fenestrated bipolar and grasping retractor were then inserted. Additional adhesions were taken down from the anterior abdominal wall, working to the midline. Several fascial defects, 4 in particular, were identified along the midline. At the umbilicus was a roughly 3 cm round defect with a large amount of omentum contained therein. It was possible to reduce a large amount of omental fat from this opening, but some was so adherent that a small portion was cut off and left within the subcutaneous tissues of the abdominal wall. Several cm above this, there was a roughly 6 to 7 cm roughly rounded defect with a large amount of omentum, as well as some bowel adherent up into the hernia. This was all freed by careful dissection and reduced into the abdomen. Slightly further up the abdominal wall along the midline was another 3 cm defect containing fat and then just above this a 1.5 cm round defect. The defects were all clearly identified. I elected to proceed with removing some of the preperitoneal fat from around these defects and this was accomplished by creating a peritoneal and preperitoneal fat flap, working from the left towards the midline. Because of her prior surgery and the distortion from the hernias, it was clear that there was not going to be enough flap tissue to try re-peritonealize any sort of mesh that was applied. Ultimately, this tissue was just dbrided off the anterior abdominal wall and set aside for later removal. After inspecting the various defects, it was clear that there was a generalized separation of the rectus muscles along the midline, which was more pronounced at the site of the widest defect, but tapered n both directions superiorly and inferiorly. Rather than trying to close each defect individually, I elected to perform a re- approximation of the midline fascia of the abdomen. I began a #1 STRATAFIX suture at the midline, slightly above the highest defect and began suturing inferiorly approximating the fascia at the medial border of the rectus muscles bilaterally. A second suture was begun inferiorly below the level of the 3 cm umbilical defect and carrying superiorly. While the fascia was re-approximated, the pressure within the abdomen was reduced to approximately 8 mmHg. It was necessary to use a 3rd suture, also a #1 STRATAFIX to complete the closure of the midline in the area of the 6 cm defect. The sutures were slightly overlapped where they intersected. This recreated a nice midline closure. I elected to cover the repair with mesh. I selected a 10 x 15 cm Parietex patch. This was a rectangle. This was Parietex reference code [id number] and lot number [id number]. This was inserted into the abdomen and placed over the inferior aspect of the midline closure. This covered the inferior 3 cm and 6 cm defects. The midline of the mesh was centered along the midline of the abdomen. Because of the decreased volume of the abdomen from the midline re-approximation, exposure was somewhat more difficult for mesh placement. I did re-inflate the abdomen to approximately 15 mmHg. In was possible to suture the midline of the mesh over the midline closure using a 2-0 V-Loc suture. 2-0 V-Loc was then used to suture the right side of the periphery of the mesh to the anterior abdominal wall. It was not technically possible to suture the left side of the mesh in place from the left and I elected to complete the right side of the mesh placement and then re-dock the robot to the right side of the abdomen to complete the placement of the mesh. Because the 10 x 15 cm mesh only closed the inferior half to 2/3 of the abdominal wall, a 12 cm round Parietex patch was selected and this was trimmed approximately a cm on opposite edges to create a roughly oval 10 x 12 cm patch. The Parietex patch, the round patch, was reference [id number] and lot number [id number]. This was inserted into the abdomen and placed over the superior portion of the midline closure and again sutured along the midline with a 2-0 V- Loc with additional suturing to approximate the periphery of the mesh to the right, to the anterior abdominal wall. The meshes were overlapped slightly along the midline and sutured in place. After completing the approximation of the midline and right half of the mesh to the anterior abdominal wall, the robot was un-docked and withdrawn. Three additional ports were then placed down the right side of the abdomen all 8s. The robot was then docked to these ports. Using a kay suture cut needle [employer] driver and a fenestrated bipolar, the suturing of the mesh to the anterior abdominal wall was completed using 2-0 V-Loc sutures. With the new vantage point from the right, it was possible to reduce the pressure within the abdomen to 8 to 10 mmHg during this completion of the mesh placement. Final inspection showed no evidence of any bleeding. The mesh placement looked excellent. A specimen retrieval bag was inserted through the 12 mm port on the left and all of the fragments of the pre-peritoneum and a small piece of omentum that had been devascularized were placed within the pouch, which was removed by Sarah Sheth. I then sutured the trocar sites internally as the left-sided trocars were removed. This was all accomplished with 2-0 Vicryl. After completing this, the patient was placed in a flat position. The abdomen was deflated and the remaining trocars were removed. Sarah Sheth and I then proceeded to close the multiple trocar sites with buried 4-0 Vicryl and Steri-Strips. Light dressings were applied. The patient tolerated the procedure well without apparent complications. She was awakened in the operating room, extubated and moved to the recovery room in stable condition. TORSTEN
--- NOTE | 2020-01-05 10:09 | IPN ---
DATE: 12/30/2019 HISTORY: Patient is post-op day number 1 from a robotic assisted laparoscopic repair of multiple incarcerated ventral incisional hernias with mesh. She has done fairly well overnight, but does report some significant pain still. Her oral intake has been fairly limited so far. She has been able to be out of bed and has been voiding without significant difficulty. PHYSICAL EXAMINATION: Vital signs show that she has been afebrile since surgery. Her pulse has been in the 90s much of the time since surgery. Her blood pressure remains good although borderline elevated at times. Intake and output show that yesterday she had 6500 in with a blood loss of 50 and urine output was not recorded. Patient is awake, but appears fairly uncomfortable from abdominal discomfort. She denies any nausea or vomiting. Heart exam: Regular rate and rhythm. Lungs: Clear. Abdomen: Her multiple trocar sites, 4 on the left and 3 on the right have small dressings in place. She does have some bowel sounds present on auscultation, but the abdomen is tender particularly along the midline. IMPRESSION: Patient has been doing fairly well with her post-op course. She is quite uncomfortable still. She has primarily been using some intermittent shots of morphine for her pain. PLAN: Patient will be converted to an admission and will be kept at least another day. I have encouraged her to try to use the oral medications and I will make [place] available to her. She was encouraged to be up out of bed. We will monitor her urine output and oral intake as well. Hopefully she will be at a point of comfort where she could go home tomorrow. TORSTEN
--- NOTE | 2020-01-05 10:12 | IPN ---
DATE: 12/31/2019 HISTORY: Patient is now post-op day number 2 from her robotic assisted laparoscopic repair of multiple ventral incisional hernias with mesh. She was quite uncomfortable yesterday and still using I.V. morphine for pain relief. She has been doing much better over the past 24 hours and is taking infrequent [place]. She has not required any additional morphine. She has been out to ambulate and has been able to void without difficulty. PHYSICAL EXAMINATION: Vital signs show that she has been afebrile. Her pulse is down into the 70s and low to mid-80s. Her blood pressure is good. Intake and output show that yesterday she had 6050 in with 2150 out. Patient is much more comfortable appearing today. She is alert and oriented. Heart and lung exams: Unremarkable. Abdomen: Still obese, but soft with some expected tenderness and she has active bowel sounds. IMPRESSION: Patient is now doing well 2 days post-op from her hernia repairs. She appears ready for discharge. PLAN: Patient will be discharged home. She can take a diet as tolerated. She will continue her usual pre-admission medications. I discussed pain management with her and will provide her with a single prescription for hydrocodone/acetaminophen tablets for 12 tablets to use as needed over the next 2 days. She was encouraged to taper these and stop as soon as she could tolerate this. She had a few small tape blisters and was to apply some topical antibiotic several times daily until these heal. She can shower as desired. She was advised against any strenuous activity for at least the next 6 weeks to allow her wounds to heal securely. She will follow up in the office in the next 10 days or so. TORSTEN
== END 2019-12-31 15:40 | disposition home or self-care (01) ==
LOC: M SDC 06:22 → M MS5PR 16:20 → M SDC 12-31 15:40
PROVIDERS: ATTEND Surgery
DX: K43.0 Incisional hernia with obstruction, without gangrene (principal); I10 Essential (primary) hypertension; E66.9 Obesity, unspecified; K21.9 Gastro-esophageal reflux disease without esophagitis; Z86.711 Personal history of pulmonary embolism; Z86.718 Personal history of other venous thrombosis and embolism; J45.909 Unspecified asthma, uncomplicated; K57.92 Diverticulitis of intestine, part unspecified, without perforation or abscess without bleeding; Z98.84 Bariatric surgery status; Z88.5 Allergy status to narcotic agent; Z88.8 Allergy status to other drugs, medicaments and biological substances; Z87.891 Personal history of nicotine dependence
CPT/HCPCS: 49655; 96374; 96375; 96376; C1781; J0131; J1100; J2175; J2250; J2270; J2370; J2405; J3010; S2900

== ENCOUNTER 2020-01-24 17:06 | Emergency (ER) | payer OTHER ==
[~2020-01-24] VITALS: Ht 162.6 cm; Wt 131.1 kg
[~2020-01-24 17:06] MED LIST changes: +HYDR-3715 PO; +IBUP200C25 PO; -LR 1,000 ML IV ONE
[2020-01-24] MEDS ORDERED: OMEP-218 PO (17:31)
[2020-01-24] MEDS ORDERED: D31000TA2 PO (17:31)
[2020-01-24] MEDS ORDERED: NS 1,000 ML IV SCH (17:32)
[2020-01-24] MEDS ORDERED: ASPIRIN 81 MG CHEW TABLET PO ONE (17:45)
[2020-01-24 18:31] LABS: BASO % 0.5 % (0.0-1.0); EOS # 0.2 10^3/uL (0.0-0.5); EOS % 3.5 % (0.0-3.0); HEMATOCRIT 38.3 % (36.0-47.0); HEMOGLOBIN 12.6 g/dl (12.0-15.5); LYMPH % 30.9 % (24.0-44.0); MEAN CORPUSCULAR HEMOGLOBIN 29.3 pg (27.0-33.0); MEAN CORPUSCULAR HGB CONC 32.9 g/dl (32.0-36.5); MEAN CORPUSCULAR VOLUME 89.1 fl (80.0-96.0); MONO # 0.4 10^3/uL (0.0-0.8); MONO % 6.7 % (0.0-5.0); NEUTROPHILS # 3.7 10^3/uL (1.5-8.5); NEUTROPHILS % 58.2 % (36.0-66.0); PLATELET COUNT, AUTOMATED 327 10^3/uL (150-450); WHITE BLOOD COUNT 6.3 10^3/uL (4.0-10.0)
[2020-01-24 18:39] LABS: ALBUMIN 3.3 GM/DL (3.2-5.2); ALT/SGPT 23 U/L (12-78); BILIRUBIN,DIRECT < 0.1 MG/DL (0.0-0.2); BILIRUBIN,TOTAL 0.2 MG/DL (0.2-1.0); BLOOD UREA NITROGEN 14 MG/DL (7-18); CARBON DIOXIDE LEVEL 30 MEQ/L (21-32); CHLORIDE LEVEL 105 MEQ/L (98-107); CK-MB VALUE MASS < 1.0 NG/ML (<3.6); CPK CREATINE PHOSPHOKINASE 65 U/L (26-192); CREATININE FOR GFR 0.82 MG/DL (0.55-1.30); GLOMERULAR FILTRATION RATE > 60.0 (>51); GLUCOSE, FASTING 87 MG/DL (70-100); MAGNESIUM LEVEL 1.9 MG/DL (1.8-2.4); MB/CK RELATIVE INDEX 1.54 (< OR =4); POTASSIUM SERUM 4.2 MEQ/L (3.5-5.1); SODIUM LEVEL 140 MEQ/L (136-145); TOTAL PROTEIN 6.6 GM/DL (6.4-8.2); TROPONIN I < 0.02 NG/ML (< 0.10)
--- NOTE | 2020-01-24 18:54 | REP ---
INDICATION: CHEST PAIN COMPARISON: 12/21/2018 TECHNIQUE: Portable AP view of the chest FINDINGS: The mediastinum and cardiac silhouette are stable and within normal limits for portable technique. The lung khan are clear without acute consolidation, effusion, or pneumothorax. Skeletal structures are intact. IMPRESSION: No acute cardiopulmonary process appreciated. <Electronically signed by Rafael Gleason > 01/24/20 [id number]
[2020-01-24 19:15] VITALS: BP 156/83
--- NOTE | 2020-01-24 20:07 | ECGEPIP ---
[facility] - ED Test Date: 2020-01-24 Pat Name: ADAIR KIRKLAND Department: Room: - Gender: Female Make Up Arranger: CONOR : 1965 Requested By: Ayaka Lopez Order Number: [id number] Reading MD: Ayaka Lopez Measurements Intervals [place] Rate: 72 P: 13 NC: 177 QRS: 11 QRSD: 82 T: 4 QT: 377 QTc: 414 Interpretive Statements SINUS RHYTHM LOW QRS VOLTAGE IN PRECORDIAL LEADS MODERATE T WAVE ABNORMALITY , CONSIDER ANTERIOR ISCHEMIA CW 10/24/[address] T WAVE CHANGES Electronically Signed on 01-24-2020 20:06:39 EST by Ayaka Lopez
== END 2020-01-24 19:20 | disposition home or self-care (01) ==
LOC: M ED 17:06
DX: R00.2 Palpitations (principal); I51.9 Heart disease, unspecified; E11.9 Type 2 diabetes mellitus without complications; I10 Essential (primary) hypertension; Z98.84 Bariatric surgery status; E66.01 Morbid (severe) obesity due to excess calories

== ENCOUNTER 2020-01-26 16:43 | Emergency (ER) | payer OTHER ==
[~2020-01-26] VITALS: Ht 162.6 cm; Wt 130.6 kg
[~2020-01-26 16:43] MED LIST changes: +D31000TA2 PO; +OMEP-218 PO
--- NOTE | 2020-01-26 19:20 | REPVR ---
PROCEDURE INFORMATION: Exam: US Duplex Right Lower Extremity Veins, Limited Exam date and time: 01/26/2020 6:59 PM Age: 54 years old Clinical indication: Pain; Leg, lower; Right; Additional info: C/O swelling TECHNIQUE: Imaging protocol: Real-time Duplex ultrasound of the Right Lower Extremity with 2-D hinton scale, color Doppler flow and spectral waveform analysis with image documentation. Limited exam was focused on the right lower extremity veins. COMPARISON: US Duplex, Ext,LOWER veins,unilat 11/19/2015 10:20 AM FINDINGS: Right deep veins: Unremarkable. The common femoral, femoral and popliteal veins are patent without thrombus. Normal Doppler waveforms. Normal compressibility and/or augmentation response. Right superficial veins: Unremarkable. Saphenofemoral junction is patent without thrombus. Soft tissues: Unremarkable. IMPRESSION: No sonographic evidence of deep vein thrombosis. Electronically signed by: Tristian Beaver On 01/26/2020 19:20:33 PM
[2020-01-26 19:35] VITALS: BP 150/71
== END 2020-01-26 19:38 | disposition home or self-care (01) ==
LOC: M ED 16:43
DX: M79.604 Pain in right leg (principal); I51.9 Heart disease, unspecified; J45.909 Unspecified asthma, uncomplicated; Z87.891 Personal history of nicotine dependence; Z79.899 Other long term (current) drug therapy; Z88.5 Allergy status to narcotic agent; Z88.8 Allergy status to other drugs, medicaments and biological substances

== ENCOUNTER → 2020-03-17 | Outpatient (CLI) | payer OTHER ==
[~2020-03-17] MED LIST changes: -ESCI20TA PO; +ESCI20TA16 PO
[2020-03-17 13:58] LABS: HEMATOCRIT 37.8 % (36.0-47.0); MEAN CORPUSCULAR HEMOGLOBIN 28.3 pg (27.0-33.0); MEAN CORPUSCULAR HGB CONC 31.7 g/dl (32.0-36.5); MEAN CORPUSCULAR VOLUME 89.2 fl (80.0-96.0); PLATELET COUNT, AUTOMATED 313 10^3/uL (150-450); RED BLOOD COUNT 4.24 10^6/uL (4.00-5.40); WHITE BLOOD COUNT 6.7 10^3/uL (4.0-10.0)
[2020-03-17 14:32] LABS: ALBUMIN 3.4 GM/DL (3.2-5.2); ALT/SGPT 26 U/L (12-78); BILIRUBIN,TOTAL 0.5 MG/DL (0.2-1.0); BLOOD UREA NITROGEN 16 MG/DL (7-18); CALCIUM LEVEL 9.4 MG/DL (8.5-10.1); CARBON DIOXIDE LEVEL 32 MEQ/L (21-32); CHLORIDE LEVEL 106 MEQ/L (98-107); CREATININE FOR GFR 0.67 MG/DL (0.55-1.30); FREE T4 1.08 NG/DL (0.76-1.46); GLOMERULAR FILTRATION RATE > 60.0 (>51); GLUCOSE, FASTING 82 MG/DL (70-100); MAGNESIUM LEVEL 2.1 MG/DL (1.8-2.4); POTASSIUM SERUM 4.3 MEQ/L (3.5-5.1); SODIUM LEVEL 141 MEQ/L (136-145); TOTAL PROTEIN 6.8 GM/DL (6.4-8.2)
== END ==
LOC: M LAB 12:20
PROVIDERS: ATTEND Physician Assistant
DX: I10 Essential (primary) hypertension (principal)

== ENCOUNTER → 2020-04-14 | Outpatient (CLI) | payer OTHER ==
[~2020-04-14] MED LIST changes: -LISI-542 PO; +LISI-898 PO
--- NOTE | 2020-04-18 13:37 | SLEEPHOME ---
DATE: 04/14/2020 DIAGNOSTIC HOME SLEEP STUDY ORDERED BY: ILEANA Schroeder. Diagnostic home sleep testing was performed due to concern for the obstructive sleep apnea syndrome in this patient with a history of snoring. For testing, a nocturnal T3 respiratory monitoring device was used. Continuous record was made of pulse, oxygen saturation, air flow, chest and abdominal strain, and body position. 11 hours and 59 minutes of data were reviewed. There were 6 hours and 10 minutes marked as time in bed. During the interval marked time in bed, there were 178 respiratory events identified of 10 seconds in duration or greater for a respiratory event index 28.8. The events were primarily obstructive. Baseline pulse rate 55. Pulse rate range 40 to 85. Baseline saturation was 92%. Saturations fell to 76%. Testing was performed in both the supine and non-supine positions. IMPRESSION: Abnormal home sleep testing with repetitive respiratory events, oxygen desaturations to 76%, and respiratory event index of 28.8 is consistent with the obstructive sleep apnea syndrome. RECOMMENDATION: The patient should be encouraged to undergo a formal sleep evaluation.
== END ==
LOC: M SLEEP HO 10:14
PROVIDERS: ATTEND Physician Assistant
DX: R06.83 Snoring (principal)